=== PATIENT | female | born 1950 | race Caucasian/White ===

== ENCOUNTER → 2023-07-17 14:48 | Outpatient (REF) | payer MEDICARE, SELFPAY | LOC: RAD 14:48 | PROVIDERS: ATTENDING PHYSICIAN Emergency Medicine; FAMILY PHYSICIAN Family Medicine | DX: R60.0 Localized edema (principal) | CPT/HCPCS: 93971 ==

== ENCOUNTER → 2023-12-23 13:16 | Outpatient (REF) | payer MEDICARE, SELFPAY | LOC: WDC 13:16 | PROVIDERS: ATTENDING PHYSICIAN Family Medicine | DX: Z12.31 Encounter for screening mammogram for malignant neoplasm of breast (principal) | CPT/HCPCS: 77063; 77067 ==

== ENCOUNTER → 2024-01-05 06:27 | Day surgery (SDC) | payer MEDICARE, SELFPAY ==
[2024-01-05 07:16] LABS: Glucose - Point of Care 215 mg/dl (70-99)
== END ==
LOC: GI 06:27
PROVIDERS: ATTENDING PHYSICIAN Internal Medicine Gastroenterology
DX: Z12.11 Encounter for screening for malignant neoplasm of colon (principal); K57.30 Diverticulosis of large intestine without perforation or abscess without bleeding; K62.89 Other specified diseases of anus and rectum; Z80.0 Family history of malignant neoplasm of digestive organs; K62.1 Rectal polyp; D12.4 Benign neoplasm of descending colon; K63.5 Polyp of colon
CPT/HCPCS: 45385; 45380; 88305; 82962

== ENCOUNTER → 2025-01-19 12:31 | Outpatient (REF) | payer MEDICARE, SELFPAY | LOC: WDC 12:31 | PROVIDERS: ATTENDING PHYSICIAN Family Medicine | DX: Z78.0 Asymptomatic menopausal state (principal); Z12.31 Encounter for screening mammogram for malignant neoplasm of breast | CPT/HCPCS: 77063; 77067; 77080 ==